=== PATIENT | male | born 1975 | race Caucasian/White ===

== ENCOUNTER 2016-12-26 23:25 | Emergency (ER) | payer MEDICAID ==
[~2016-12-26] VITALS: Ht 177.8 cm; Wt 100.0 kg
[~2016-12-26 23:25] MED LIST: CARV3.1260 PO; DIGO125T PO; FOLI-49 PO; FURO20TA3 PO; LACT10SO5 PO; LISI-313 PO; NIT4 SL; PANT40TA4 PO; RIFA550T4 PO; SPIR50TA PO; THIA100T10 PO
[2016-12-26 23:49] VITALS: Ht 177.8 cm; Wt 100.0 kg
[2016-12-27] MEDS ORDERED: ALBUTEROL 0.083% (NEB) 2.5 MG/3 ML AMP INH STA (01:51)
--- NOTE | 2016-12-27 02:43 | RADRPT ---
PROCEDURE: CHEST - 1 VIEW CLINICAL INDICATION: 41-year-old male with shortness of breath. TECHNIQUE: A single frontal AP upright portable view of the chest was performed. The images were reviewed on a PACS workstation. COMPARISON: None. FINDINGS: There is a shallow inspiration accentuating the heart size. Accounting for this, the cardiomediasti nal silhouette is within normal limits. There is bibasilar subsegmental atelectasis. There is no e vidence for an infiltrate. There is no evidence for congestive heart failure. There is no evidence for pneumothorax. The osseous structures are intact. IMPRESSION: Shallow inspiration with bibasilar subsegmental atelectasis. .Phill Rodriguez MD, MD Date Time Electronically viewed and signed by .Phill Rodriguez MD, on 12/27/2016 02:43 .M/
[2016-12-27 03:48] LABS: ADD SCAN DIFF NO
[2016-12-27 04:14] LABS: ALANINE AMINOTRANSFERASE 48 IU/L (13-69); ALBUMIN 4.2 g/dl (3.3-4.9); ALBUMIN/GLOBULIN RATIO 1.16; ALKALINE PHOSPHATASE 174 IU/L (42-121); ANION GAP 12 (8-16); ASPARTATE AMINO TRANSFERASE 70 IU/L (15-46); BILIRUBIN,INDIRECT 1.3 mg/dl (0-1.1); BILIRUBIN,TOTAL 1.3 mg/dl (0.2-1.3); BLOOD UREA NITROGEN 7 mg/dl (7-20); CALCIUM 7.8 mg/dl (8.4-10.2); CARBON DIOXIDE 25 mmol/L (21-31); CHLORIDE 106 mmol/L (97-110); CREATININE 0.63 mg/dl (0.61-1.24); GLUCOSE 91 mg/dl (70-220); POTASSIUM 3.3 mmol/L (3.5-5.1); SODIUM 140 mmol/L (135-144); TOTAL PROTEIN 7.8 g/dl (6.1-8.1)
[2016-12-27 04:19] LABS: INR 1.36; PARTIAL THROMBOPLASTIN TIME 41.6 Sec (25.0-35.0); PROTIME 16.8 Sec (12.2-14.2); PT RATIO 1.3
[2016-12-27 04:29] LABS: ABNORMAL IP MESSAGE 1; BASOPHILS % 0.6 % (0.0-2.0); EOSINOPHILS # 0.1 10^3/ul (0.0-0.5); EOSINOPHILS % 3.8 % (0.0-7.0); HEMATOCRIT 37.4 % (42.0-52.0); LYMPHOCYTES # 1.2 10^3/ul (0.8-2.9); LYMPHOCYTES % 38.4 % (15.0-51.0); MEAN CORPUSCULAR HEMOGLOBIN 29.1 pg (29.0-33.0); MEAN CORPUSCULAR HGB CONC 32.1 g/dl (32.0-37.0); MEAN CORPUSCULAR VOLUME 90.6 fl (82.0-101.0); MONOCYTE # 0.4 10^3/ul (0.3-0.9); MONOCYTES % 11.3 % (0.0-11.0); NEUTROPHIL # 1.5 10^3/ul (1.6-7.5); NEUTROPHILS % 45.9 % (39.0-77.0); PLATELET COUNT 93 10^3/UL (140-415); RED BLOOD COUNT 4.13 10^6/ul (4.70-6.10); RED CELL DISTRIBUTION WIDTH 15.5 % (11.5-14.5); WHITE BLOOD COUNT 3.2 10^3/ul (4.8-10.8)
[2016-12-27 04:30] LABS: B-TYPE NATRIURETIC PEPTIDE < 11 PG/ML (0-125); TROPONIN-I < 0.012 ng/ml (0.00-0.12)
--- NOTE | 2016-12-27 05:30 | ERD ---
ER Documentation Chief Complaint Date/Time DATE: 12/27/16 TIME: 05:29 Chief Complaint SOB x 2 hours [employer] AND FORMER HPI This is a 41-year-old male comes in with complaints of abdominal pain. Shortness of breath related strictly to abdominal pain. History of cirrhosis and ascites. No fevers no chills. No nausea no vomiting. No other current complaints ROS All systems reviewed and are negative except as per history of present illness. Physical Exam Vitals Vital Signs Date Time Temp Pulse Resp B/P Pulse Ox O2 Delivery O2 Flow Rate FiO2 12/27/16 04:37 102 22 135/78 98 Room Air 12/27/16 03:47 Nasal Cannula 2 12/27/16 02:03 94 18 97 21 12/26/16 23:49 98.5 106 18 140/72 97 Physical Exam Const: [] Head: Atraumatic Eyes: Normal Conjunctiva ENT: Normal External Ears, Nose and Mouth. Neck: Full range of motion..~ No meningismus. Resp: Clear to auscultation bilaterally Cardio: Regular rate and rhythm, no murmurs Abd: Soft, non tender, non distended. Normal bowel sounds Skin: No petechiae or rashes Back: No midline or flank tenderness Ext: No cyanosis, or edema Neur: Awake and alert Psych: Normal Mood and Affect Result Diagram: 12/27/16 0340 12/27/16 0340 Results 24 hrs Laboratory Tests Test 12/27/16 03:40 White Blood Count 3.210^3/ul Red Blood Count 4.1310^6/ul Hemoglobin 12.0g/dl Hematocrit 37.4% Mean Corpuscular Volume 90.6fl Mean Corpuscular Hemoglobin 29.1pg Mean Corpuscular Hemoglobin Concent 32.1g/dl Red Cell Distribution Width 15.5% Platelet Count 9310^3/UL Mean Platelet Volume 10.0fl Neutrophils % 45.9% Lymphocytes % 38.4% Monocytes % 11.3% Eosinophils % 3.8% Basophils % 0.6% Nucleated Red Blood Cells % 0.0/100WBC Neutrophils # 1.510^3/ul Lymphocytes # 1.210^3/ul Monocytes # 0.410^3/ul Eosinophils # 0.110^3/ul Basophils # 0.010^3/ul Nucleated Red Blood Cells # 0.010^3/ul Prothrombin Time 16.8Sec Prothrombin Time Ratio 1.3 INR International Normalized Ratio 1.36 Activated Partial Thromboplast Time 41.6Sec Sodium Level 140mmol/L Potassium Level 3.3mmol/L Chloride Level 106mmol/L Carbon Dioxide Level 25mmol/L Anion Gap 12 Blood Urea Nitrogen 7mg/dl Creatinine 0.63mg/dl Glucose Level 91mg/dl Calcium Level 7.8mg/dl Total Bilirubin 1.3mg/dl Direct Bilirubin 0.00mg/dl Indirect Bilirubin 1.3mg/dl Aspartate Amino Transf (AST/SGOT) 70IU/L Alanine Aminotransferase (ALT/SGPT) 48IU/L Alkaline Phosphatase 174IU/L Troponin I < 0.012ng/ml B-Type Natriuretic Peptide < 11PG/ML Total Protein 7.8g/dl Albumin 4.2g/dl Globulin 3.60g/dl Albumin/Globulin Ratio 1.16 Lipase 52U/L Current Medications Medications (Trade) Dose Ordered Sig/Horacio Route PRN Reason Start Time Stop Time Status Last Admin Dose Admin Albuterol (Proventil 0.083% (Neb)) 5 mg ONCE STAT INH 12/27/16 01:51 12/27/16 01:52 DC 12/27/16 02:02 Procedures/MDM EKG: Rate/Rhythm: Normal Sinus Rhythm QRS, ST, T-waves: No changes consistent w/ acute ischemia Impression: No evidence of ischemia or arrhythmia Chest X-ray 1V Interpreted by me: Soft Tissue: No acute abnormalities Bones: No acute abnormalities Mediastinum/Cardiac Silhouette/Lungs: No acute abnormalities Medical decision-makin-year-old gentleman with shortness of breath. Likely secondary to ascites. At this point clinically stable for outpatient management. Patient be discharged home. Follow-up in 8 hours for serial abdominal exams which he agrees. Return sooner for shortness of breath which has since resolved Departure Diagnosis: Primary Impression: Shortness of breath Condition: Stable ANICETO GRANT Dec 27, 2016 05:30
[2016-12-27] MEDS: HYDROCODONE/APAP (10/325) TAB PO ONE ×2 (06:01→06:31)
[2016-12-27] MEDS ORDERED: morphine 4 MG/ML VIAL IV STA (08:00)
[2016-12-27] MEDS ORDERED: ONDANSETRON 4 MG INJ IV STA (08:00)
[2016-12-27] MEDS ORDERED: SOD CHLORIDE 0.9% 500 ML IV STA (08:00)
--- NOTE | 2016-12-27 08:37 | RADRPT ---
PROCEDURE: CT Abdomen and Pelvis without contrast. CLINICAL INDICATION: Abdominal pain. TECHNIQUE: CT scan of the abdomen and pelvis without contrast was performed on a multidetector hig h-resolution CT scanner. The patient was scanned without intravenous contrast. Coronal and sagittal reformatted images were obtained from the axial source images. Images were reviewed on a [employer] PACS workstation. The total exam CTDI equals 22.95 mGy and the total exam DLP equals 1652.31 m Gy-cm. One or the following dose reduction techniques were used: -Automated exposure control. -Adjustment of the mA and/or KV according to patient's size. -Use of iterative reconstruction technique. COMPARISON: None. FINDINGS: Lung Bases: Unremarkable. GI:. There is a small hiatal hernia. Liver: Liver is small and slightly nodular with a decrease in attenuation suggesting steatosis. Gallbladder: There is cholelithiasis without evidence of biliary tree dilatation. Pancreas: Unremarkable. Spleen: There is splenomegaly at 14.4 cm in length. There is some prominent vascular structures in t he splenic hilum suggestive of splenic varices. Adrenals: Unremarkable. Kidneys: There is no evidence of urolithiasis or obstructive uropathy. Bladder: Caliber of the small large intestine appears within normal limits. Pelvic Organs: Unremarkable. Skeleton: Normal for age. Other: N/A IMPRESSION: 1. 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 2. Cholelithiasis without evidence of biliary tree dilatation. 3. Small hiatal hernia. 4. No evidence of urolithiasis or obstructive uropathy. 5. No other significant intra-abdominal or pelvic process identified. RPTAT: [facility] Physician Liliana Date Time Electronically viewed and signed by Physician Liliana on 12/27/2016 08:37 /
--- NOTE | 2016-12-27 09:25 | QN ---
Documentation Comment The patient was endorsed to me by the overnight provider as he was being discharged. The patient continued to report abdominal pain. I reevaluated the patient. He had mild generalized abdominal pain but seem to be disinterested in having a conversation. He does describe a history of cirrhosis with last paracentesis 2 years ago. On exam the patient has an obese abdomen with a large pannus but no evidence of fluid wave, no focal tenderness and certainly no peritonitis. However, a CT of the abdomen was ordered given patient's description of persistent pain. ct a/p IMPRESSION: 1. 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 2. Cholelithiasis without evidence of biliary tree dilatation. 3. Small hiatal hernia. 4. No evidence of urolithiasis or obstructive uropathy. 5. No other significant intra-abdominal or pelvic process identified. The patient was given further dose of pain medication and IV fluids. His CT imaging shows no evidence of significant ascites, no indication for paracentesis , low concern for SBP. Consider possible gastritis. The patient's laboratory testing shows no evidence of hepatobiliary obstruction. At this time I feel the patient can be safely discharged home as Dr. Deras had planned. NIALL SUNG MD Dec 27, 2016 09:25
[2016-12-27 09:36] LABS: AADO2 Arterial 33.1 mmHg (7.0-24.0); Arterial COHb 0.7 % (0.0-3.0); Arterial Fraction of Oxyhgb 90.6 % (93.0-99.0); Arterial HCO3 22.8 mmol/L (22.0-26.0); Arterial MetHb 0.3 % (0.0-1.5); Arterial Total Hemglobin 13.1 g/dl (12.0-18.0); MODE ROOM AIR
[2016-12-27 10:45] VITALS: BP 143/60; PULSE 89; RESP 16; TEMP 98.4
== END 2016-12-27 10:45 | disposition home or self-care (01) ==
LOC: E/R 23:25 → EDBD 23:25 → MERGE 23:25 → E/R 12-27 10:45
DX: R06.02 Shortness of breath (principal)
CPT/HCPCS: 36415; 36600; 71010; 74176; 80053; 82803; 83690; 83880; 84484; 85025; 85610; 85730; 93005; 94664; 96361; 96374; 96375; J2270; J2405; J7040; Z7502; Z7610

== ENCOUNTER 2018-05-25 14:18 | Emergency (ER) | END 2018-05-25 16:14 | disposition home or self-care (01) ==